=== PATIENT | female | born 1970 | race Caucasian/White ===

== ENCOUNTER 2021-09-04 16:06 | Emergency (ER) | payer OTHER ==
[2021-09-04 17:00] VITALS: BP 123/84; PULSE 64; TEMP 98.4; BMI 25.0
[2021-09-04] MEDS ORDERED: LIDOCAINE 5% TOPICAL PATCH TP ONE (19:33)
[2021-09-04] MEDS ORDERED: ACETAMINOPHEN 500 MG TABLET (FP) PO ONE (19:33)
[2021-09-04] MEDS ORDERED: LIDOCAINE 5% TOPICAL PATCH ONE (20:31)
[2021-09-04] MEDS ORDERED: ACETAMINOPHEN 325 MG TABLET (FP) ONE (20:31)
[2021-09-04] MEDS ORDERED: LIDOCAINE PATCH REMOVAL MC SCH (22:00)
== END 2021-09-04 21:56 | disposition home or self-care (01) ==
LOC: JER 16:06
DX: M25.562 Pain in left knee (principal)
CPT/HCPCS: 93971-TC; 99284-25

== ENCOUNTER 2022-01-07 14:40 | Emergency (ER) | payer OTHER ==
[2022-01-07 15:22] VITALS: BP 110/62; PULSE 68; RESP 18; TEMP 97.9; BMI 29.9
[2022-01-07] MEDS ORDERED: ALBUTEROL SO4 2.5/IPRATROPIUM 0.5 INH SOL 3 ML VIAL.NEB. NEB ONE ×2 (16:14→17:42)
== END 2022-01-07 20:00 | disposition home or self-care (01) ==
LOC: JER 14:40
PROC: 3E0F7GC Introduction of Other Therapeutic Substance into Respiratory Tract, Via Natural or Artificial Opening (ICD-10-PCS; principal; 2022-01-07)
DX: R05.1 Acute cough (principal); J06.9 Acute upper respiratory infection, unspecified
CPT/HCPCS: 0241U-QW; 71046-TC-FY; 99284-25

== ENCOUNTER 2024-10-05 16:42 | Emergency (ER) | payer OTHER ==
[2024-10-05 16:48] VITALS: BP 132/74; PULSE 85; RESP 20; TEMP 98.5; BMI 26.4
[2024-10-05] MEDS ORDERED: KETOROLAC TROMETHAMINE 30 MG/1 ML VIAL ONE (17:35)
[2024-10-05] MEDS: KETOROLAC TROMETHAMINE 30 MG/1 ML VIAL IM ONE (17:40)
== END 2024-10-05 20:46 | disposition home or self-care (01) ==
LOC: JERFT 16:42
PROC: 3E0233Z Introduction of Anti-inflammatory into Muscle, Percutaneous Approach (ICD-10-PCS; principal; 2024-10-05)
DX: M25.512 Pain in left shoulder (principal); M79.622 Pain in left upper arm; R20.2 Paresthesia of skin
CPT/HCPCS: 73030-TC-LT-FY; 99284-25